=== PATIENT | female | born 1985 | race African-American/Black ===

== ENCOUNTER 2018-11-04 08:16 | Emergency (ER) | payer OTHER ==
[~2018-11-04] VITALS: Ht 175.3 cm; Wt 62.6 kg
--- NOTE | 2018-11-04 08:16 | NUR ---
ED Nurse Note: Patient walked into ED brought in by [facility] 33 due to allergic reaction, c/o itchiness and rash, to possbily dungeness crab. nothing given en route by EMS. Patient reports taking Benadryl OTC but without relief.
--- NOTE | 2018-11-04 08:17 | NUR ---
ED Nurse Note: patient reports that there is no chance that she may be .
--- NOTE | 2018-11-04 08:42 | Emergency Room Report ---
History of Present Illness General Chief Complaint: Allergic Reaction Source: Patient Present Illness HPI Disclaimer: Please note that this report is being documented using DRAGON technology. This can lead to erroneous entry secondary to incorrect interpretation by the dictating instrument. HPI: 36-year-old otherwise healthy female presents for evaluation of diffuse itching. The patient was in her usual state of health until last night when she was cooking shellfish with a friend at home. She immediately began to experience body wide itching and small urticaria. Denied any wheezing, throat closure, respiratory distress, lightheadedness or any other changes. Denies diarrhea, abdominal cramping, vomiting, constipation. She did note selector urticaria over the extremities and over the abdomen. She took Benadryl this morning approximately 25 mg without significant improvement. Continues to deny any respiratory distress. PMH: Denies PSH: Denies Allergies: Shellfish and navarro Social Hx: Social alcohol use, denies tobacco or drug use Allergies: Coded Allergies: SHELLFISH DERIVED (Verified Allergy, Intermediate, 11/04/18) PENICILLINS (Verified Allergy, Unknown, 11/04/18) Patient History Now: No Nursing Documentation-PMH Past Medical History: No Stated History Review of Systems All Other Systems: negative except mentioned in HPI Physical Exam Vital Signs Date Time Temp Pulse Resp B/P (MAP) Pulse Ox O2 Delivery O2 Flow Rate FiO2 11/04/18 08:10 97.9 86 20 119/98 (105) 98 Room Air General: Awake and alert, no acute distress HEENT: NC/AT. EOMI. sclera not injected. No stridor. Moist move his membranes Neck: Supple, trachea midline Chest Wall: No tenderness, no deformity Cardiovascular: RRR. S1 and S2 normal. No murmur appreciated Resp: Normal work of breathing. No cough, wheezing or crackles appreciated Abdomen: Abdomen is soft, nondistended. Nontender Skin: Small raised urticaria over the forearms and over the abdomen. Nontender , negative Nikolsky, no weeping, no breakdown MSK: Normal tone and bulk. Moving all extremities. No obvious deformity. Neuro: Awake and alert. Mentating appropriately. Medical Decision Making Diagnostic Impression: Primary Impression: Allergic reaction ER Course 33-year-old female presents for evaluation of diffuse itching and urticaria after being exposed to shellfish, unknown allergen, last night. She has taken naproxen 25 mg of Benadryl. No evidence of respiratory involvement as the patient has no stridor, no wheezing, no respiratory distress and is otherwise well-appearing with stable vital signs. Will give oral famotidine, Benadryl and prednisone and monitored in the emergency department. I anticipate discharge home on steroids and antihistamines. Reevaluation Time: 09:47 Last Vital Signs Date Time Temp Pulse Resp B/P (MAP) Pulse Ox O2 Delivery O2 Flow Rate FiO2 11/04/18 08:18 86 20 Room Air 11/04/18 08:10 97.9 119/98 (105) 98 Status: improved Reevaluation Impression Patient symptoms are now resolved. She has no wheezing, no respiratory distress and remains with stable vital signs. No longer complaining of itching and urticaria is improving as well. She will be discharged on famotidine, Benadryl and prednisone. Follow-up with PMD in the name of several clinics were included in her discharge paperwork if she cannot see her PMD sooner. Discussed reasons to return to the emergency department with patient as well as red flag symptoms of anaphylaxis. She understands and agrees with this treatment plan will be discharged home. Disposition: HOME, SELF-CARE Condition: Improved Scripts Diphenhydramine Hcl* (DIPHENHYDRAMINE HCL*) 25 Mg Capsule 25 MG ORAL Q6H PRN for Itching, #30 CAP 0 Refills Prov: Yefri Robertson MD 11/04/18 Famotidine (FAMOTIDINE) 20 Mg Tablet 20 MG ORAL TWICE A DAY, #6 TAB 0 Refills Prov: Yefri Robertson MD 11/04/18 Prednisone* (PREDNISONE*) 20 Mg Tablet 40 MG ORAL DAILY, #6 TAB Prov: Yefri Robertson MD 11/04/18 Yefri Robertson MD Nov 04, 2018 08:42
[2018-11-04] MEDS ORDERED: DIPHENHYDRAMINE25 M1 ORAL (09:08)
[2018-11-04] MEDS ORDERED: FAMOTIDINE20 MG ORAL (09:08)
[2018-11-04] MEDS ORDERED: PREDNISONE20 MG ORAL (09:08)
--- NOTE | 2018-11-04 10:12 | NUR ---
ER DISCHARGE NOTE: Patient is cleared to be discharged per ERMD DR NINA, pt is aox4, on room air, with stable vital signs. pt was given dc and prescription instructions, pt was able to verbalize understanding, pt id band removed without complications. pt is able to ambulate with steady gait. pt took all belongings.
[2018-11-04 10:14] VITALS: BP 118/92
[2018-11-04 10:15] VITALS: BP 119/98
== END 2018-11-04 10:14 | disposition home or self-care (01) ==
LOC: EDBD 08:16 → EMR 08:50
DX: T78.40XA Allergy, unspecified, initial encounter (principal); X58.XXXA Exposure to other specified factors, initial encounter; Z91.013 Allergy to seafood; Z88.0 Allergy status to penicillin
CPT/HCPCS: 99283; J7512